=== PATIENT | female | born 1970 | race Hispanic/Latino ===

== ENCOUNTER 2023-08-17 19:05 | Emergency (ER) | payer SELFPAY ==
[2023-08-17] MEDS ORDERED: EPINEPHrine 1 MG/10 ML SYR IV ONE (19:06)
--- OUTSIDE RECORDS SUMMARY | 2023-08-17 19:09 | XMS REPORT | Continuity of Care Document ---
Author Name Unknown Address [address] [facility] [place] [address] [facility] thconnect Address [address] 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 Name Role Phone PCP, PATIENT DOES NOT HAVE A Primary Care Physic lenin Unavailable SHELDON PERALES Attending Clinician Unavail SHELDON Buck Attending Clinician Unavail Sheldon Buck MD Attending Clinician [phone] Doctor Unassigned, [place] Attending Clinician U Whitney Samayoa DO Attending Clinician [phone] Mariam Ferreira MD Attending Clinician [phone] MARIAM FERREIRA Attending Clinician Unavailable WHITNEY HUERTAS Admitting Clinician Unavailab le Allergies, Adverse Reactions, Alerts Allergy Name Allergy Type Status Severity Reaction(s) Onset Date Inactive Date Treating Clinician Comments Source NO KNOWN ALLERGIE S Drug Class Active [facility] Social History Social Habit Start Date Stop Date Quantity Comments Source History of tobacco use Passive smoker [facility] Cigarettes smoked current (pack per day) - Reported 2023-02-28 00:00:00 2023-02-28 00:00:00 [facility] Cigarette pack-years 2023-02-28 00:00:00 2023-02-28 00:00:00 [facility] Tobacco use and exposure 2023-02-28 00:00:00 2023-02-28 00:00:00 Smokeless tobacco non-user [facility] Alcohol intake 2023-02-28 00:00:00 2023-02-28 00:00:00 .71 /d [facility] History of Social function 2023-02-28 00:00:00 2023-02-28 00:00:00 [facility] Exposure to SARS-CoV-2 (event) 2022-07-25 00:00:00 2022-08-04 18:01:00 Not sure [facility] Sex Assigned At 1970 00:00:00 1970 00:00:00 [facility] Smoking Status Start Date Stop Date Source Tobacco smoking consumption unknown [facility] Smokes tobacco daily 2023-02-28 00:00:00 [facility] Medications Ordered Medication Name Filled Medication Name Start Date Stop Date Current Medication? Ordering Clinician Indication Dosage Frequency Signature (SIG) Comments Components Source aspirin 81 mg EC tablet 2022-05 16:11: 48 Yes 81mg Take 1 tablet by mouth in the morning. [facility] clonidine (CATAPRES) 0.1 mg/mL oral suspension 2022-05 16:11: 23 Yes .1mg Take 1 mL by mouth in the morning and 1 mL at noon and 1 mL in the evening. [facility] lisinopriL 40 mg tablet 2022-05 16:10: 48 Yes 40mg Take 1 tablet by mouth in the morning. [facility] NaCl 0.9% (NS) bolus infusion 1,000 mL 08-05 00:15: 00 08-05 01:26 :00 No 1000mL at 999 mL/hr, 1,000 mL, IV Infusion, ONCE, 1 dose, On Sarai 08/04/22 at 1915, BRANDEN [facility] iopamidol (ISOVUE 370-500 mL) injection 100 mL 08-04 23:53: 00 08-04 23:53 :00 No [id number] 100mL 100 mL, Intravenou s, ONCE, 1 dose, On Sarai 08/04/22 at 1915, Routine [facility] diazePAM (VALIUM) injection 5 mg 08-04 23:30: 08-04 23:30 :00 No 5mg 5 mg, Slow IV Push, ONCE, 1 dose, On Sarai 08/04/22 at 1830, STAT [facility] meclizine 25 mg tablet 08-04 00:00: 00 Yes [id number] 25mg Take 1 tablet by mouth every 6 (six) hours as needed for Dizziness or Nausea. [facility] lisinopriL 20 mg tablet 08-04 00:00: 00 09-04 04:59 :00 No [id number] 20mg Take 1 tablet by mouth in the morning for [address] [facility] Vital Signs Vital Name Observation Time Observation Value Comments S ourkatlin Systolic blood pressure 2023-02-28 20:16:00 172 mm[Hg] [facility] Diastolic blood pressure 2023-02-28 20:16:00 93 mm[Hg] [facility] Heart rate 2023-02-28 20:07:00 64 /min [facility] Body height 2023-02-28 20:07:00 154.9 cm [facility] Body weight 2023-02-28 20:07:00 51.256 kg [facility] BMI 2023-02-28 20:07:00 21.35 kg/m2 [facility] Heart rate 2022-08-05 01:00:00 80 /min [facility] Respiratory rate 2022-08-05 01:00:00 16 /min [facility] Oxygen saturation in Arterial blood by Pulse oximetry 2022-08-05 01:00:00 99 /min [facility] Systolic blood pressure 2022-08-05 00:30:00 183 mm[Hg] [facility] Diastolic blood pressure 2022-08-05 00:30:00 94 mm[Hg] [facility] Body temperature 2022-08-04 22:58:00 37.22 Orin [facility] Body height 2022-08-04 22:58:00 154.9 cm [facility] Body weight 2022-08-04 22:58:00 55.293 kg [facility] BMI 2022-08-04 22:58:00 23.03 kg/m2 [facility] Procedures Procedure Date / Time Performed Performing Clinicia n Source REFERRAL- REQUEST/RESPONSE 2023-01-30 05:01:00 Doctor Unassigned, [place] [facility] EKG-12 LEAD 2022-08-05 00:02:24 [facility] 2022-08-04 23:21:00 Whitney Huertas Un [facility] TROPONIN I 2022-08-04 23:21:00 Whitney Huertas [facility] COMP. METABOLIC PANEL ([id number]) 2022-08-04 23:21:00 Whitney Huertas [facility] CBC WITH DIFF 2022-08-04 23:21:00 [facility] 2022-08-04 23:21:00 Whitney Huertas [facility] NOTICE OF PRIVACY PRACTICES 2022-08-04 22:54:55 Doctor Unassigned, [place] [facility] Encounters Start Date/Time End Date/Time Encounter Type Admission Type Attending [facility] Care Facility Care Department Encounter ID Source 2023-06-20 16:38:16 2023-06-20 16:38:16 Outpatient [facility] [id number] Henry Meza Bernardo 2023-05-22 16:19:08 2023-05-22 16:19:08 Outpatient [facility] [id number] Henry Meza Bernardo 2023-04-25 10:05:02 2023-04-25 10:05:02 Outpatient [facility] [id number] Henry Meza Bernardo 2023-04-20 16:15:08 2023-04-20 16:15:08 Outpatient [facility] [id number] Henry Meza Bernardo 2023-04-18 09:40:00 2023-04-18 09:40:00 Outpatient [facility] [id number] [facility] 2023-04-07 16:00:00 2023-04-07 16:00:00 Outpatient [facility] [id number] [facility] 2023-04-07 13:00:00 2023-04-07 13:00:00 Outpatient [facility] [id number] [facility] 2023-04-03 14:40:00 2023-04-03 14:40:00 Outpatient [facility] [id number] [facility] 2023-03-28 09:40:00 2023-03-28 09:40:00 Outpatient [facility] [id number] [facility] 2023-03-24 16:00:00 2023-03-24 16:00:00 Outpatient [facility] [id number] [facility] 2023-03-20 16:36:08 2023-03-20 16:36:08 Outpatient [facility] [id number] Henry Chang 2023-03-14 00:00:00 2023-03-14 00:00:00 Telephone Sheldon Perales [facility] [id number] [id number] [id number] [facility] 2023-02-28 15:00:00 2023-02-28 16:03:22 Outpatient [facility] [id number] [facility] 2023-02-28 15:00:00 2023-02-28 16:03:22 Office Visit Sheldon Perales [facility] [id number] 350.1.13.10 [id number] [facility] 2023-01-30 00:00:00 2023-01-30 00:00:00 Orders Only Doctor Unassigned, [place] [facility] [id number] 350.1.13.10 4.2.7.2.[id number] [facility] 2023-01-27 17:20:29 2023-01-27 17:20:29 Outpatient [facility] [id number] Henry Chang 2022-12-06 11:21:52 2022-12-06 11:21:52 Outpatient [facility] [id number] Henry Chang 2022-11-25 16:53:30 2022-11-25 16:53:30 Outpatient [facility] [id number] Henry Chang 2022-09-01 09:47:04 2022-09-01 09:47:04 Outpatient [facility] [id number] Henry Meza [place] 2022-08-04 18:16:00 2022-08-04 20:33:00 Emergency Whitney Huertas [place] [facility] [id number] 350.1.13.10 [id number] [facility] 2022-08-04 18:16:00 2022-08-04 20:33:00 Emergency X MARIAM FERREIRA [facility] ERT [id number] [facility] Results Test Description Test Time Test Comments Results Result Co mments Source LIPID [id number] 06:08:01* Test Item Value Reference Range Interpretation Comme nts CHOLESTEROL (test code = 2210) 183 MG/DL <200 TRIGLYCERIDES (test code = 2232) 57 MG/DL <150 HDL CHOLESTEROL (test code = 2220) 70 MG/DL >39 CALC LDL CHOL (test code = 2237) 99 MG/DL <100 NOTE: CALCULATED LDL IS BASED ON ERIN-REA METHOD WHICHINCLUDES ADJUSTABLE TRIGLYCERIDE:VLDL CHOLESTEROL RATIO.THIS FACTOR VARIES BY MEASURED TRIGLYCERIDE AND NON-HDLCHOLESTEROL CONCENTRATIONS WITH INCREASED CALCULATED LDL SEENIN HIGHER TRIGLYCERIDE OR LOWER NON-HDL SPECIMENS. FOR MOREINFORMATION, SEE CLIENT ANNOUNCEMENT AT [email or web address] RISK RATIO LDL/HDL (test code = 223) 1.41 RATIO <3.22 COMPREHENSIVE METABOLIC [id number] 06:08:01* Test Item Value Reference Range Interpretation Comme nts GLUCOSE (test code = 2216) 122 MG/DL 70-99 H BUN (test code = 2207) 9 MG/DL 6-20 CREATININE (test code = 2213) 0.57 MG/DL 0.60-1.30 L eGFR (2020 CKD-EPI) (test code = 07639) 108 ML/MIN/1.73 >60 CALC BUN/CREAT (test code = 2234) 16 RATIO 6-28 SODIUM (test code = 2230) 137 MEQ/L 133-146 POTASSIUM (test code = 2227) 5.0 MEQ/L 3.5-5.4 CHLORIDE (test code = 2214) 98 MEQ/L 95-107 CARBON DIOXIDE (test code = 2205) 22 MEQ/L 19-31 CALCIUM (test code = 2208) 9.6 MG/DL 8.5-10.5 PROTEIN, TOTAL (test code = 2228) 7.3 G/DL 6.1-8.3 ALBUMIN (test code = 2200) 4.5 G/DL 3.5-5.2 CALC GLOBULIN (test code = 2240) 2.8 G/DL 1.9-3.7 CALC A/G RATIO (test code = 2234) 1.6 RATIO 1.0-2.6 BILIRUBIN, TOTAL (test code = 2206) 0.2 MG/DL <=1.2 ALKALINE PHOSPHATASE (test code = 2203) 75 U/L 40-133 AST (test code = 2218) 8 U/L 9-40 L ALT (test code = 2219) 13 U/L 5-40 UNLESS OTHERWISE INDICATED, ALL TESTING PERFORMED AT [facility] [address] [place] [id number] PLANT BUYER: RONALD POOL M.D. CLIA NUMBER [id number] [facility] [place]. [id number] CBC W/AUTO DIFF WITH [id number] 02:20:44* Test Item Value Reference Range Interpretation Comme nts WBC (test code = 1001) 5.6 K/UL 3.5-11.0 RBC (test code = 1002) 4.11 M/UL 3.80-5.40 HEMOGLOBIN (test code = 1003) 8.3 G/DL 11.5-15.5 L HEMATOCRIT (test code = 1004) 28.5 % 34.0-45.0 L MCV (test code = 1005) 69.3 fL 80.0-99.0 L MCH (test code = 1006) 20.2 PG 25.0-33.0 L MCHC (test code = 1007) 29.1 G/DL 31.0-36.0 L RDW (test code = 1038) 16.8 % 11.5-15.0 H NEUTROPHILS (test code = 1008) 60.3 % LYMPHOCYTES (test code = 1010) 29.3 % MONOCYTES (test code = 1011) 7.1 % EOSINOPHILS (test code = 1012) 1.6 % BASOPHILS (test code = 1013) 1.2 % IMMATURE GRANULOCYTES (test code = 1036) 0.5 % NUCLEATED RBCS (test code = 1065) 0.0 /100 WBC'S See_Comment [Automated messa ge] The system which generated this result transmitted reference range: 0.0. The reference range was not used to interpret this result as normal/abnormal. PLATELET COUNT (test code = 1015) 569 K/UL 130-400 H ABSOLUTE NEUTROPHILS (test code = 1066) 3.39 K/UL 1.50-7.50 ABSOLUTE LYMPHOCYTES (test code = 1067) 1.65 K/UL 1.00-4.00 ABSOLUTE MONOCYTES (test code = 1068) 0.40 K/UL 0.20-1.00 ABSOLUTE EOSINOPHILS (test code = 1040) 0.09 K/UL 0.00-0.50 ABSOLUTE BASOPHILS (test code = 1069) 0.07 K/UL 0.00-0.20 ABS IMMATURE GRANULOCYTES (test code = 1020) 0.03 K/UL 0.00-0.10 ABS NUCLEATED RBCS (test code = 19654) 0.00 K/UL 0.00-0.11 TROPONIN [id number] 00:12:22* Test Item Value Reference Range Interpretation Comme nts TROPONIN I (test code = 7493046240) 0.002 ng/mL <=0.034 ELVA (test code = ELVA) Reference (Normal) Range (defined by the 99th percentile reference limit): <= 0.034 ng/mL Note: Cardiac troponin begins to rise 3-4 hours after the onset of ischemia. Repeat in 4-6 hours if the sample was drawn within 3-4 hours of the onset of the symptom and found normal. Diagnosis of myocardial injury is made with acute changes in cTn concentrations with at least one serial sample above the 99th percentile upper reference limit (URL), taken together with the patient's clinical presentation. Biotin has been reported to cause a negative bias, interpret results relative to patient's use of biotin. Lab Interpretation (test code = 35246-5) Normal [facility]. METABOLIC PANEL (10158)2022-08-05 00:00:45* Test Item Value Reference Range Interpretation Comme nts NA (test code = 3154435108) 135 mmol/L 135-145 K (test code = 1719724820) 4.3 mmol/L 3.5-5.0 CL (test code = 5164268833) 102 mmol/L 98-108 CO2 TOTAL (test code = 6660014785) 22 mmol/L 23-31 L AGAP (test code = 1495848129) 11 2-16 BUN (test code = 6240646146) 11 mg/dL 7-23 GLUCOSE (test code = 5872836990) 121 mg/dL 70-110 H CREATININE (test code = 3967208928) 0.55 mg/dL 0.50-1.04 TOTAL BILI (test code = 1982878784) 0.6 mg/dL 0.1-1.1 CALCIUM (test code = 5859535888) 9.8 mg/dL 8.6-10.6 T PROTEIN (test code = 4763471843) 8.1 g/dL 6.3-8.2 ALBUMIN (test code = 9042199576) 4.7 g/dL 3.5-5.0 ALK PHOS (test code = 2094645719) 86 U/L 34-122 ALTv (test code = 1742-6) 14 U/L 5-35 AST(SGOT) (test code = 5054441564) 11 U/L 13-40 L eGFR (test code = 5145114143) 115.6 mL/min/1.73m2 ELVA (test code = ELVA) Association of Glomerular Filtration Rate (GFR) and Staging of Kidney Disease* + --+ --+ ------+| GFR (mL/min/1.73 m2) ?| With Kidney Damage ?| ?Without Kidney Damage+ --------+ --------+ +| ?>90 ?| ?Stage one ?| ? Normal ?+ ---+ ---+ -------+| ?60-89 ?| ?Stage two ?| ? Decreased GFR ? + --+ --+ ------+| ?30-59 ?| ?Stage three ?| ? Stage three ? + --+ --+ ------+| ?15-29 ?| ?Stage four ? | ? Stage four ?+ ---+ ---+ -------+| ?<15 (or dialysis) ? ?| ?Stage five ? | ? Stage five ?+ ---+ ---+ -------+ *Each stage assumes the associated GFR level has been in effect for at least three months. ?Stages 1 to 5, with or without kidney disease, indicate chronic kidney disease. Notes: Determination of stages one and two (with eGFR >59mL/min/1.73 m2) requires estimation of kidney damage for at least three months as defined by structural or functional abnormalities of the kidney, manifested by either:Pathological abnormalities or Markers of kidney damage (including abnormalities in the composition of the blood or urine or abnormalities in imaging tests). Lab Interpretation (test code = 75663-2) [facility]* Test Item Value Reference Range Interpretation Comme nts MAGNESIUM (test code = 5148445898) 2.0 mg/dL 1.7-2.4 Lab Interpretation (test cod e = 82823-0) Normal [facility] WITH [id number] 23:46:42* Test Item Value Reference Range Interpretation Comme nts WBC (test code = 6690-2) 7.84 See_Comment [Automated ImageTag] The system which generated this result transmitted reference range: 4.30 - 11.10 10*3/?L. The reference range was not used to interpret this result as normal/abnormal. RBC (test code = 789-8) 4.88 See_Comment [Automated messa ge] The system which generated this result transmitted reference range: 3.93 - 5.25 10*6/?L. The reference range was not used to interpret this result as normal/abnormal. HGB (test code = 718-7) 13.9 g/dL 11.6-15.0 HCT (test code = 4544-3) 41.8 % 35.7-45.2 MCV (test code = 787-2) 85.7 fL 80.6-95.5 MCH (test code = 785-6) 28.5 pg 25.9-32.8 MCHC (test code = 786-4) 33.3 g/dL 31.6-35.1 RDW-SD (test code = 03471-4) 45.7 fL 39.0-49.9 RDW-CV (test code = 788-0) 14.6 % 12.0-15.5 PLT (test code = 777-3) 432 See_Comment H [Automated messa ge] The system which generated this result transmitted reference range: 166 - 358 10*3/?L. The reference range was not used to interpret this result as normal/abnormal. MPV (test code = 07067-2) 10.0 fL 9.5-12.9 NRBC/100 WBC (test code = 4145049304) 0.0 See_Comment [Automated [facility] ssage] The system which generated this result transmitted reference range: 0.0 - 10.0 /100 WBCs. The reference range was not used to interpret this result as normal/abnormal. NRBC x10^3 (test code = 3744418562) See_Comment [Automated messa ge] The system which generated this result transmitted reference range: 10*3/?L. The reference range was not used to interpret this result as normal/abnormal. GRAN MAT (NEUT) % (test code = 770-8) 66.1 % IMM GRAN % (test code = 7983329047) 0.40 % LYMPH % (test code = 736-9) 24.4 % MONO % (test code = 5905-5) 6.9 % EOS % (test code = 713-8) 1.3 % BASO % (test code = 706-2) 0.9 % GRAN MAT x10^3(ANC) (test code = 4786011823) 5.19 10*3/uL 1.88-7.09 IMM GRAN x10^3 (test code = 8696792346) 0.03 10*3/uL 0.00-0.06 LYMPH x10^3 (test code = 731-0) 1.91 10*3/uL 1.32-3.29 MONO x10^3 (test code = 742-7) 0.54 10*3/uL 0.33-0.92 EOS x10^3 (test code = 711-2) 0.10 10*3/uL 0.03-0.39 BASO x10^3 (test code = 704-7) 0.07 10*3/uL 0.01-0.07 Lab Interpretation (test code = 54604-8) Abnormal [facility]"
--- NOTE | 2023-08-17 19:40 | EDPHYS ---
Physician Documentation [facility] Name: Gris Garcia Age: 53 yrs Sex: Female : 1970 Arrival Date: 08/17/2023 Time: 19:05 Bed 3 Private MD: ED Physician Benigno Mcdaniel HPI: 08/16 19:30 This 53 yrs old Female presents to ER via Unassigned with complaints of CPR. rn 19:30 Preceding the arrest, the patient collapsed. The arrest occurred in a parking lot. It rn is unknown whether or not the patient has had similar symptoms in the past. EMS reports patient had not been feeling well earlier, reported to family and was having chest pain, went out shopping and collapsed on the ground. Unknown presenting rhythm, CPR started intermittent ROSC per EMS status post 4 epi injections. Intubated in the field. Arrived here without a pulse, presenting rhythm was PEA.. Historical: - Allergies: 19:05 Chocolate; ha1 - PMHx: 19:05 Hypertensive disorder; stroke one year ago (Unknown); ha1 - PSHx: 19:05 hysterectomy; ha1 - Immunization history:: Adult Immunizations unknown. - Infectious Disease History:: unknown . - Family history:: not pertinent. - Hospitalizations: : No recent hospitalization is reported. - Social history:: Smoking status: unknown. ROS: 19:30 Unable to obtain ROS due to GCS 3, rn Exam: 19:30 Constitutional: Thin female, intubated, GCS 3 Head/Face: Normocephalic, atraumatic. rn Eyes: Pupils 6 mm, unreactive Cardiovascular: No spontaneous cardiac activity noted Respiratory: Bilateral breath sounds with bagging Abdomen/GI: Distended abdomen, no signs of trauma MS/ Extremity: No deformity Neuro: GCS 3 Vital Signs: 19:58 Weight 47.63 kg; Height 5 ft. 1 in. ; ha1 19:58 Body Mass Index 19.84 (47.63 kg, 154.94 cm) ha1 Procedures: 19:30 Central Line: the site was prepped with Betadine, in sterile fashion, a triple lumen rn catheter was inserted, in the right femoral vein, in 1 attempts. placement was verified, by blood return, the site was dressed with Tegaderm, using sterile technique, the patient tolerated the procedure, well. MDM: 19:12 Patient medically screened. rn 19:30 Differential diagnosis: arrythmia, cardiac arrest, respiratory arrest. Data reviewed: rn vital signs, nurses notes, and as a result, I will. 19:38 ED course: Discussed with boyfriend, no other family around. He is notifying rn telephone triage. He also states that she had been complaining of chest pain prior and then collapsed and was completely unresponsive. Bedside ultrasound performed multiple times during code and no LV function, following and artifact in the right ventricle, suspect large ID.. 20:08 ED course: I personally spent 35 minutes engaged in work directly related to the rn individual patient's care. This does not include any time spent performing procedures. The patient has been deemed critically ill because of CPR in progress, consultation with EMS staff, consultation and discussions with family and boyfriend, and management of pulseless electrical activity.. Administered Medications: 19:07 Drug: EPINEPHrine 0.1mg/mL 1:10,000 1 mg IVP once Route: IVP; Site: left antecubital; [facility] 19:45 Follow up: Response: No change in condition [facility] 19:09 Drug: EPINEPHrine 0.1mg/mL 1:10,000 1 mg IVP once Route: IVP; Site: left antecubital; [facility] 19:45 Follow up: Response: No change in condition [facility] 19:11 Drug: Sodium Bicarbonate 1 amp IVP once; (50 mL); equals 50 mEq Route: IVP; Site: left [address]; 19:45 Follow up: Response: No change in condition [facility] 19:13 Drug: Sodium Bicarbonate 1 amp IVP once; (50 mL); equals 50 mEq Route: IVP; Site: left [facility] antecubital; 19:45 Follow up: Response: No change in condition [facility] 19:13 Drug: EPINEPHrine 0.1mg/mL 1:10,000 1 mg IVP once Route: IVP; Site: left antecubital; [facility] 19:45 Follow up: Response: No change in condition [facility] 19:15 Drug: Sodium Bicarbonate 1 amp IVP once; (50 mL); equals 50 mEq Route: IVP; Site: left [facility] antecubital; 19:45 Follow up: Response: No change in condition [facility] 19:16 Drug: EPINEPHrine 0.1mg/mL 1:10,000 1 mg IVP once Route: IVP; Site: left antecubital; ha1 19:45 Follow up: Response: No change in condition ha1 19:19 Drug: EPINEPHrine 0.1mg/mL 1:10,000 1 mg IVP once Route: IVP; Site: left antecubital; ha1 19:45 Follow up: Response: No change in condition ha1 19:22 Drug: EPINEPHrine 0.1mg/mL 1:10,000 1 mg IVP once Route: IVP; Site: left antecubital; ha1 19:45 Follow up: Response: No change in condition ha1 19:24 Drug: EPINEPHrine 0.1mg/mL 1:10,000 1 mg IVP once Route: IVP; Site: left antecubital; ha1 19:45 Follow up: Response: No change in condition ha1 Disposition: 19:38 . rn 20:07 Critical Care:. rn Disposition Summary: 08/17/23 19:40 Patient Notes: Location: [facility] rn Pronouncing Physician: Benigno Mcdaniel rn Time of : 19:25 08/17/2023 rn Diagnosis - Cardiac arrest, cause unspecified t rail turner time excluding procedures: 20:07 Critical care time: Bedside Care: 30 minutes, Family Intervention: 5 minutes. Total rn time: 35 minutes Signatures: Benigno Mcdaniel MD MD rn Ayala, Heidy, RN RN [facility]
--- NOTE | 2023-08-17 21:57 | ER ---
Nurse's Notes [facility] Name: Gris Garcia Age: 53 yrs Sex: Female : 1970 Arrival Date: 08/17/2023 Time: 19:05 Bed 3 Private MD: Diagnosis: Cardiac arrest, cause unspecified Presentation: 08/16 19:05 Chief complaint: EMS states: 53 year old female was having chest pain all day. this ha1 afternoon she went shopping with a family member and became unconscious when she got to the car in the parking lot. on our arrival she was pulseless. CPR started. 19:05 Method Of Arrival: EMS: [facility] ha1 19:05 Acuity: HILDA 1 ha1 19:05 Care prior to arrival: CPR performed by EMS was defibrillated. Compressions began prior ha1 to arrival. 19:05 Ebola Screen: Unable to complete the Ebola screening because:. Ebola Screen: Unable to ha1 complete the Ebola screening because: Patient is unresponsive. Initial Sepsis Screen: Does the patient meet any 2 criteria? No. Patient's initial sepsis screen is negative. Does the patient have a suspected source of infection? No. Patient's initial sepsis screen is negative. Risk Assessment: Do you want to hurt yourself or someone else? Unable to obtain. 19:05 Onset of symptoms was August 18, 2023. ha1 19:20 Coronavirus screen: unable to obtain. ha1 Triage Assessment: 19:05 General: Behavior is unresponsive. ha1 19:05 Pain: Unable to use pain scale. Patient is unresponsive. ha1 19:12 General: Appears unresponsive CPR in progress . ha1 Historical: - Allergies: 19:05 Chocolate; ha1 - PMHx: 19:05 Hypertensive disorder; stroke one year ago (Unknown); ha1 - PSHx: 19:05 hysterectomy; ha1 - Immunization history:: Adult Immunizations unknown. - Infectious Disease History:: unknown . - Family history:: not pertinent. - Hospitalizations: : No recent hospitalization is reported. - Social history:: Smoking status: unknown. Screenin:05 Nutritional screening: No deficits noted. Tuberculosis screening: No symptoms or risk ha1 factors identified. 20:47 Abuse screen: unable to obtain. ha1 Assessment: 19:05 CPR assessment: unresponsive, no respiratory effort, intubated, Ambu ventilation. ha1 Cardiac rhythm is asystole. Cardiovascular: Rhythm is ventricular fibrillation. Respiratory: Airway via oral intubation CPR in progress. 19:05 Cardiovascular: Rhythm is ventricular fibrillation. ha1 19:05 Reassessment: resumed chest compressions. ha1 19:11 Cardiovascular: Rhythm is asystole. ha1 19:11 Reassessment: resume chest compressions. ha1 19:15 Cardiovascular: no pulse Rhythm is asystole. ha1 19:15 Reassessment: resume chest compression. ha1 19:17 Cardiovascular: Rhythm is asystole. ha1 19:17 Reassessment: resumed chest compression. ha1 19:20 Cardiovascular: Heart tones absent Rhythm is asystole. ha1 19:20 Reassessment: resumed chest compressions. ha1 19:25 Cardiovascular: no pulse. confirmed by ultrasound Rhythm is asystole. ha1 19:45 Reassessment: [employer] contacted case # [id number]. ha1 Vital Signs: 19:58 Weight 47.63 kg; Height 5 ft. 1 in. ; ha1 19:58 Body Mass Index 19.84 (47.63 kg, 154.94 cm) ha1 ED Course: 19:05 Client placed on continuous cardiac and pulse oximetry monitoring. NIBP monitoring ha1 applied. staff writer on. 19:05 Patient has correct armband on for positive identification. charge nurse PARK Doyle , 1 casting house worker PARK Beck, ANDRZEJ Peralta,RN, [facility] in the room. 19:05 Defibrillated with 120 joules. ha1 19:10 Maintain EMS IV. Dressing intact. Site clean \T\ dry. Gauge \T\ site: 20 gauge left AC. moreno 1 19:12 Patient arrived in ED. wm 19:12 Benigno Mcdaniel MD is Attending Physician. rn 19:12 Arm band placed on right wrist. ha1 19:15 Assisted provider with central line placement. Set up central line tray. Triple lumen ha1 line placed in right femoral. Line placed by Benigno Mcdaniel MD Placement verified by blood return. 19:39 Benigno Mcdaniel MD is Pronouncing Provider. rn 19:49 Triage completed. ha1 20:00 [facility] called. wm Administered Medications: 19:07 Drug: EPINEPHrine 0.1mg/mL 1:10,000 1 mg IVP once Route: IVP; Site: left antecubital; 1 19:45 Follow up: Response: No change in condition ha1 19:09 Drug: EPINEPHrine 0.1mg/mL 1:10,000 1 mg IVP once Route: IVP; Site: left antecubital; 1 19:45 Follow up: Response: No change in condition ha1 19:11 Drug: Sodium Bicarbonate 1 amp IVP once; (50 mL); equals 50 mEq Route: IVP; Site: left [facility] antecubital; 19:45 Follow up: Response: No change in condition ha1 19:13 Drug: Sodium Bicarbonate 1 amp IVP once; (50 mL); equals 50 mEq Route: IVP; Site: left [facility] antecubital; 19:45 Follow up: Response: No change in condition ha1 19:13 Drug: EPINEPHrine 0.1mg/mL 1:10,000 1 mg IVP once Route: IVP; Site: left antecubital; 1 19:45 Follow up: Response: No change in condition ha1 19:15 Drug: Sodium Bicarbonate 1 amp IVP once; (50 mL); equals 50 mEq Route: IVP; Site: left [facility] antecubital; 19:45 Follow up: Response: No change in condition ha1 19:16 Drug: EPINEPHrine 0.1mg/mL 1:10,000 1 mg IVP once Route: IVP; Site: left antecubital; 1 19:45 Follow up: Response: No change in condition ha1 19:19 Drug: EPINEPHrine 0.1mg/mL 1:10,000 1 mg IVP once Route: IVP; Site: left antecubital; 1 19:45 Follow up: Response: No change in condition ha1 19:22 Drug: EPINEPHrine 0.1mg/mL 1:10,000 1 mg IVP once Route: IVP; Site: left antecubital; 1 19:45 Follow up: Response: No change in condition ha1 19:24 Drug: EPINEPHrine 0.1mg/mL 1:10,000 1 mg IVP once Route: IVP; Site: left antecubital; [facility] 19:45 Follow up: Response: No change in condition ha1 Medication: 20:38 VIS not applicable for this client. ha1 Outcome: 19:25 Outcome Patient ha1 21:57 Patient left the ED. jb4 21:57 Discharged to home ([facility]) ha1 21:57 Condition: ha1 Signatures: Benigno Mcdaniel MD MD rn Bryson, James, RN RN jb4 Jeanie Weaver Heidy, RN RN ha1 Corrections: (The following items were deleted from the chart) 19:44 09:25 EPINEPHrine 1:10,000 IVP 1:10,000 1 mg IVP in left antecubital 08/17 03:29 08/16 19:05 Respiratory: Airway via oral intubation [facility] 08/17 03:30 08/16 19:05 Cardiovascular: Rhythm is [facility] 03:31 04 19:11 Cardiovascular: Rhythm is asystole [place] [id number] 08/17 03:32 08/16 19:15 Cardiovascular: no pulse Rhythm is asystole [place] [id number] 08/17 03:35 08/16 19:17 Cardiovascular: Rhythm is asystole [place] [id number] 08/17 04:15 04 19:05 Chief complaint: EMS states: 53 year old female was having chest pain all day. when shopping with family members and became unconscious when she got to the car in the parking lot. on our arrival she was pulseless. CPR started 08/17 04:16 08/16 19:05 Onset of symptoms was August 18, 2023 [facility]/17 04:17 08/16 19:05 Onset of symptoms was August 18, 2023 [place] [id number] 08/17 04:21 08/16 19:05 Cardiovascular: Rhythm is [facility] 04:21 04 19:05 Cardiovascular: Rhythm is PEA [place] [id number] 08/17 04:23 08/16 19:05 Patient has correct armband on for positive identification. charge nurse 1 PARK Doyle , casting house worker PARK Beck, ANDRZEJ Peralta,RN, Nicole, Tech , Bernice Chun in the room
== END 2023-08-17 21:57 | disposition expired ==
LOC: ER 19:05
PROC: 06HM33Z Insertion of Infusion Device into Right Femoral Vein, Percutaneous Approach (ICD-10-PCS; principal; 2023-08-17)
DX: I46.9 Cardiac arrest, cause unspecified (principal); I10 Essential (primary) hypertension; Z91.018 Allergy to other foods
CPT/HCPCS: 92950; 92960; 93005; 96374; 96375; 99285; J0171